=== PATIENT | female | born 1955 | race Caucasian/White ===

== ENCOUNTER 2017-10-01 14:41 | Emergency (ER) | payer OTHER ==
[~2017-10-01] VITALS: Ht 162.6 cm; Wt 90.3 kg
[2017-10-01 15:03] VITALS: BP 116/100
--- NOTE | 2017-10-01 15:05 | NUR ---
pt to lobby awaiting room, er aware, pt is ao, vss, nad
--- NOTE | 2017-10-01 15:49 | NUR ---
BIB 61f with c/o nausea productive cough, fever,WEAKNESS x 1wk hx--denies,PT AAO, SKIN WARM TO TOUCH RESP. EVEN AND UNLABORED,0/10 PAIN.
--- NOTE | 2017-10-01 16:12 | NUR ---
WILL RELAY TO DR. FREEMAN RESULT OF URINE DIPSTICK AND .
[2017-10-01 16:30] VITALS: BP 137/78
--- NOTE | 2017-10-01 16:31 | NUR ---
Patient discharged with v/s stable. Written and verbal after care instructions given and explained. Patient alert, oriented and verbalized understanding of instructions. Ambulatory with steady gait. All questions addressed prior to discharge. ID band removed. Patient advised to follow up with PMD. Rx of LEVAQUIN,MOTRIN AND ROBITUSSIN given. Patient educated on indication of medication including possible reaction and side effects. Opportunity to ask questions provided and answered.ENCOURAGED FLUID INTAKE AND PT AGREED WITH IT.
== END 2017-10-01 16:31 | disposition home or self-care (01) ==
LOC: MED 14:41
DX: J18.9 Pneumonia, unspecified organism (principal); M54.6 Pain in thoracic spine
CPT/HCPCS: 71046; 81025; 99284

== ENCOUNTER 2022-02-18 11:46 | Emergency (ER) | payer SELFPAY ==
[~2022-02-18] VITALS: Ht 162.6 cm; Wt 97.1 kg
[2022-02-18 11:49] VITALS: BP 176/77
--- NOTE | 2022-02-18 12:05 | NUR ---
66/F BIB SELF C/O RIGHT EYE REDNESS AND DISCOMFORT WITH NO PAIN FOR NOW AND LITTLE ITCHINESS S/P USING A NEW EYELINER. DENIES VISION CHANGES, REPORTS USING OTC EYE DROPS WITH NO RELIEF. NKA PMH: DENIES
--- NOTE | 2022-02-18 12:05 | NUR ---
ALEKSANDER MOORE AT BEDSIDE.
[2022-02-18] MEDS ORDERED: FLUORESCEIN OPTH STRIP 1 MG OP ONE (12:10)
--- NOTE | 2022-02-18 12:37 | NUR ---
pt stated unable to read letter without glasses rn and pa notified.
[2022-02-18] MEDS ORDERED: POLY15SO48 RIGHT EYE (12:44)
[2022-02-18] MEDS ORDERED: PEG15DRO10 RIGHT EYE (12:46)
--- NOTE | 2022-02-18 13:01 | NUR ---
Patient discharged with v/s stable. Written and verbal after care instructions given and explained. Patient alert, oriented and verbalized understanding of instructions. Ambulatory with steady gait. All questions addressed prior to discharge. ID band removed. Patient advised to follow up with PMD. Rx of PEG 400/HYPROMELLOSA/GLYCERIN given. Opportunity to ask questions provided and answered.
== END 2022-02-18 13:01 | disposition home or self-care (01) ==
LOC: MED 11:46
DX: H11.31 Conjunctival hemorrhage, right eye (principal); Z79.899 Other long term (current) drug therapy
CPT/HCPCS: 99282; 99283